=== PATIENT | male | born 1965 | race Caucasian/White ===

== ENCOUNTER 2017-05-04 10:52 | Outpatient (CLI) | payer OTHER | END 2017-05-04 10:53 | disposition critical access hospital (66) | LOC: EMS 10:52 | PROVIDERS: ATTEND Surgery | DX: S69.92XA Unspecified injury of left wrist, hand and finger(s), initial encounter (principal); W01.0XXA Fall on same level from slipping, tripping and stumbling without subsequent striking against object, initial encounter; Y92.59 Other trade areas as the place of occurrence of the external cause | CPT/HCPCS: A0425; A0427 ==

== ENCOUNTER 2017-05-04 11:12 | Emergency (ER) | payer OTHER ==
--- NOTE | 2017-05-04 11:38 | ED Physician Documentation ---
PD HPI UPPER EXT INJURY - Stated complaint Stated Complaint: GLF WRIST PX - Chief complaint Chief Complaint: Ext Problem - History obtained from History obtained from: Patient - History of Present Illness Location: Left, Wrist Type of injury: Fall (slipped on wet porch and tried to catch fall with hand. Denies injury to head, neck, chest, abd.) Where injury occurred: Work Timing - onset: Today Timing - details: Abrupt onset, Still present Improved by: Immobilization Worsened by: Moving, Palpating Associated symptoms: Tingling (of fingers), Swelling. No: Weakness, Numbness Contributing factors: No: Anticoagulated, Prior ortho surgery Similar symptoms before: Has not had sx before Recently seen: Not recently seen Review of Systems Constitutional: denies: Fever, Chills Nose: denies: Rhinorrhea / runny nose, Congestion Throat: denies: Sore throat Respiratory: denies: Cough GI: denies: Nausea, Vomiting, Diarrhea Skin: denies: Laceration (s) Musculoskeletal: reports: Extremity pain Neurologic: denies: Altered mental status, Headache, Head injury PD PAST MEDICAL HISTORY - Past Medical History Past Medical History: Yes Cardiovascular: Hypertension Respiratory: Asthma - Present Medications Home Medications: Ambulatory Orders Medication Instructions Recorded Confirmed HYDROcodone/ACET 7.5/325 [[place] 1 each PO Q6H PRN #25 tablet 05/04/17 7.5/325] Naproxen [Naprosyn] 500 mg PO BID #20 tablet 05/04/17 - Allergies Allergies/Adverse Reactions: Allergies Allergy/AdvReac Type Severity Reaction Status Date / Time No Known Drug Allergies Allergy Verified 05/04/17 11:20 - Social History Does the pt smoke?: No Smoking Status: Former smoker Does the pt drink ETOH?: Yes Does the pt have substance abuse?: No PD ED PE NORMAL - Vitals Vital signs reviewed: Yes - General General: Alert and oriented X 3, Well developed/nourished, Other (appears in pain due to wrist defomrity) - HEENT HEENT: Atraumatic - Neck Neck: Supple, no meningeal sign, No bony TTP, No adenopathy - Cardiac Cardiac: RRR, No murmur - Respiratory Respiratory: Clear bilaterally, Other (no chestwall tenderness) - Abdomen Abdomen: Soft, Non tender - Back Back: No spinal TTP - Derm Derm: Normal color, Warm and dry - Extremities Extremities: Other (left distal forearm/wrist with obvious swelling and deformity dorsal wrist. Able to flex/extend fingers but hurts a lot at wrist. Good pulses at the wrist. Good cap refill in fingers. ). No: Normal ROM s pain - Neuro Neuro: Alert and oriented X 3, No motor deficit, No sensory deficit Results - Vitals Vitals: Vital Signs - 24 hr 05/04/17 05/04/17 11:16 14:15 Temperature 36.5 C 36.8 C Heart Rate 88 90 Respiratory 20 20 Rate Blood Pressure 134/92 H 131/73 H O2 Saturation 98 96 Oxygen O2 Source Room air - Rads (name of study) left wrist Radiology: Prelim report reviewed, EMP read contemporaneously (distal radius comminuted fracture, intra-articular, with dorsal tilt, but minimal displacement. ) Procedures - Reduction Body part reduced: Left, Wrist Fracture or dislocation: Fracture Anesthesia: Hematoma block, Dilaudid, Fentanyl Reduction aftercare: NV intact, Alignment improved, Splint applied, Sling, Patient tolerated well PD MEDICAL DECISION MAKING - ED course Complexity details: reviewed results, considered differential, d/w patient, d/w data center consultant (Dr. Haywood, who said it may likely need surgery but would defer it to when swelling is down. ) Departure - Departure Disposition: 01 Home, Self Care Clinical Impression: Accidental fall Qualifiers: Encounter type: initial encounter Qualified Code(s): W19.XXXA - Unspecified fall, initial encounter Distal radius fracture, left Qualifiers: Encounter type: initial encounter Fracture type: closed Fracture morphology: Colles' Qualified Code(s): S52.532A - Colles' fracture of left radius, initial encounter for closed fracture Condition: Stable Record reviewed to determine appropriate education?: Yes Instructions: ED Fx Forearm Radius Ulna Redu Requ, ED Splint Care Fiberglass Prescriptions: HYDROcodone/ACET 7.5/325 [[place] 7.5/325] 1 each PO Q6H PRN #25 tablet PRN Reason: Pain Naproxen [Naprosyn] 500 mg PO BID #20 tablet Comments: Keep the splint on and the arm elevated. Ice to the area often today and tomorrow particularly. Use anti-inflammatories such as naproxen twice daily for the next 7-10 days. Add Tylenol or hydrocodone if needed for pain. Follow- up with orthopedics, call Saturday for an appointment. [facility] with [facility] [place] and their phone number is . This may likely need surgery subsequently but the cast and splint will hold it in place as the bones are starting to heal (new bone growth at the edges ) and it requires good positioning within a week to 10 days, so surgery next week does not "delay" healing of the injury per se. Discharge Date/Time: 05/04/17 14:15
[2017-05-04] MEDS ORDERED: HYDROmorphone 1 MG/ML SYRINGE IVP STA (11:39)
[2017-05-04] MEDS ORDERED: KETOROLAC 60 MG/2 ML VIAL IVP STA (11:40)
[2017-05-04] MEDS ORDERED: ONDANSETRON 4 MG/2 ML VIAL IVP STA (12:59)
[2017-05-04] MEDS ORDERED: fentaNYL 100 MCG/2 ML VIAL IVP STA (13:00)
--- NOTE | 2017-05-04 13:19 | XRAY Preliminary Report ---
Exam: XR WRIST 3 VIEW LT IMPRESSION: Comminuted, displaced and mildly angulated distal radial intra-articular fracture. [facility] SITE ID: [id number]
--- NOTE | 2017-05-04 13:19 | XRAY Report ---
EXAM: LEFT WRIST RADIOGRAPHY EXAM DATE: 05/04/2017 01:05 PM. CLINICAL HISTORY: Fall with wrist injury. COMPARISON: None. TECHNIQUE: 3 views. FINDINGS: Bones: Comminuted and dorsally impacted, displaced and mildly dorsally angulated distal radial fractu re with up to 1 cm of dorsal displacement. There is intra-articular involvement. Joints: Normal. No subluxations. Soft Tissues: Associated wrist soft tissue edema. IMPRESSION: Comminuted, displaced and mildly angulated distal radial intra-articular fracture. [facility] Referring Provider Line: [phone] SITE ID: [id number]
[2017-05-04 14:16] VITALS: BP 131/73
== END 2017-05-04 14:15 | disposition home or self-care (01) ==
LOC: ED 11:12
DX: S52.532A Colles' fracture of left radius, initial encounter for closed fracture (principal); W01.0XXA Fall on same level from slipping, tripping and stumbling without subsequent striking against object, initial encounter; Y99.0 Civilian activity done for income or pay; I10 Essential (primary) hypertension
CPT/HCPCS: 25605; 73110; 96374; 96375; 99283; 99284; J1170